=== PATIENT | male | born 1955 | race Caucasian/White ===

== ENCOUNTER 2019-07-16 21:16 | Emergency (ER) | payer OTHER ==
[~2019-07-16] VITALS: Ht 180.3 cm; Wt 117.0 kg
[~2019-07-16 21:16] MED LIST: ATOR20TA PO; FENO145T32 PO; FLUT16SP2 NS; HYDR-3165 PO; INSU100I13 SQ; INSU100V31 SQ; METF10007 PO; MULT1TAB52 PO; PENI500T PO
--- NOTE | 2019-07-16 22:01 | PHYS DOC ---
Past History Past Medical History: Diabetes, Hypertension Past Surgical History: No Surgical History Smoking: Cigar Alcohol Use: Occasionally Drug Use: None Adult General Chief Complaint Chief Complaint: SORE THROAT..." I am all stuffed up, congestion, sore throat... my face and eyes are swollen, fever, chills, aching.. my ears hurt.. I just miserable.. My sugar are doing okay... it was 112 at home when I checked.. them.. " HPI HPI Patient is a 63 year old male who presents with above hx and complaints respiratory infection, fever, chills, malaise, pharyngitis, otitis, and history of diabetes. No recent travel or specific ill contacts. Normally healthy with the exception of his diabetes. Follows with Dr. Mckeon. Review of Systems Review of Systems Constitutional: History of fever or chills [] Eyes: Denies change in visual acuity, redness, or eye pain [] HENT: History of nasal congestion and bilateral ear pain and congestion and sore throat [] Respiratory: History of cough Cardiovascular: No additional information not addressed in HPI [] GI: Denies abdominal pain, nausea, vomiting, bloody stools or diarrhea [] : Denies dysuria or hematuria [] Musculoskeletal: Denies back pain or joint pain [] Integument: Denies rash or skin lesions [] Neurologic: Denies headache, focal weakness or sensory changes [] Endocrine: Denies polyuria or polydipsia [] All other systems were reviewed and found to be within normal limits, except as documented in this note. Family History Family History Diabetes Current Medications Current Medications See nursing for home meds Allergies Allergies Allergies Coded Allergies Type Severity Reaction Last Updated Verified No Known Drug Allergies 04/04/14 No Physical Exam Physical Exam Constitutional: Moderate acute distress, non-toxic appearance. [] HENT: Normocephalic, atraumatic, bilateral external ears normal, bilateral TMs are injected in fluid, oropharynx moist, ejected pharynx, no oral exudates, nose swollen turbinates and rhinorrhea Eyes: PERRLA, EOMI, conjunctiva normal, no discharge. [] Neck: Normal range of motion, no tenderness, supple, no stridor. [] Cardiovascular:Heart rate regular rhythm, no murmur [] Lungs & Thorax: Bilateral breath sounds with apex with few scattered wheezes on auscultation [] Abdomen: Bowel sounds normal, soft, no tenderness, no masses, no pulsatile masses. [] Skin: Warm, dry, no erythema, no rash. [] Back: No tenderness, no CVA tenderness. [] Extremities: No tenderness, no cyanosis, no clubbing, ROM intact, no edema. [] Neurologic: Alert and oriented X 3, normal motor function, normal sensory function, no focal deficits noted. [] Psychologic: Affect anxious, judgement normal, mood normal. [] Current Patient Data Vital Signs Vital Signs Date Time Temp Pulse Resp B/P (MAP) Pulse Ox O2 Delivery O2 Flow Rate FiO2 07/16/19 21:18 98.0 93 18 97 Room Air EKG EKG [] Radiology/Procedures Radiology/Procedures [] Course & Med Decision Making Course & Med Decision Making Pertinent Labs and Imaging studies reviewed. (See chart for details) Take Tylenol and ibuprofen as needed for fever and discomfort. Benadryl 50 mg at night may be helpful for congestion and drainage. Patient use 2 sprays at from both nose at night when she goes to bed. Patient use Flonase 2 sprays at night when he goes to bed. Patient use normal saline rinses or sprays to nose 4 times a day and as needed. Patient take Keflex 500 mg 3 times a day. Patient follow-up with Dr. Maravilla. Patient return if any concerns. Patient to monitor sugars because of prednisone may elevate his next 2 glucose levels. Patient uses MDI 2 puffs 4 times a day. [] Impression: 1. Upper respiratory infection 2. Otitis 3. History of diabetes Dragon Disclaimer Dragon Disclaimer This electronic medical record was generated, in whole or in part, using a voice recognition dictation system. Departure Departure: Disposition: HOME/RESIDENCE PRIOR TO ADM Condition: STABLE Referrals: JOSIAS MCKEON MD (PCP) Scripts Cephalexin (KEFLEX) 500 Mg Capsule 500 MG PO TID for URI for 10 Days, BOTTLE Prov: LASHON LUCERO MD 07/16/19 Javi Disclaimer This chart was dictated in whole or in part using Voice Recognition software in a busy, high-work load, and often noisy Emergency Department environment. It may contain unintended and wholly unrecognized errors or omissions. LASHON LUCERO MD Jul 16, 2019 22:01
[2019-07-16] MEDS ORDERED: predniSONE 10 MG TABLET PO ONE (22:15)
[2019-07-16 22:36] LABS: INFLUENZA A PATIENT NEGATIVE (NEGATIVE); INFLUENZA B PATIENT NEGATIVE (NEGATIVE)
[2019-07-16] MEDS ORDERED: CEPHALEXIN 250 MG CAPSULE PO ONE (23:30)
[2019-07-16] MEDS ORDERED: CEPH-264 PO (23:32)
[2019-07-16 23:52] VITALS: BP 177/83
== END 2019-07-17 00:06 | disposition home or self-care (01) ==
LOC: ER 21:16
DX: J06.9 Acute upper respiratory infection, unspecified (principal); H66.93 Otitis media, unspecified, bilateral; E11.9 Type 2 diabetes mellitus without complications; I10 Essential (primary) hypertension; F17.210 Nicotine dependence, cigarettes, uncomplicated
CPT/HCPCS: 87070; 87804; 87880; 99284; J7512